=== PATIENT | male | born 1985 | race Caucasian/White ===

== ENCOUNTER 2025-04-06 15:18 | Outpatient (CLI) | payer OTHER, SELFPAY ==
--- NOTE | ~2025-04-06 | XR_ITS ---
EXAMINATION: XR chest 2V 04/06/2025 15:34 INDICATION: Shortness of breath PROCEDURE: 2 view chest COMPARISON: No prior studies for comparison. FINDINGS: The lungs are clear. The cardiomediastinal silhouette is within normal limits. There are no pleural effusions. There is no pneumothorax suspected. IMPRESSION: 1: NO ACUTE CARDIOPULMONARY DISEASE. Reviewed, dictated and finalized at location A.
--- OUTSIDE RECORDS SUMMARY | 2025-04-06 15:24 | XMS_ITS | Referral Summary ---
Author Organization [facility] Address [address] [place] [address] Care Team Providers Care Slag Worker Name Role Phone Mac Chester MD Primary Care Provider [phone] Encounters Date Type Department Care Team Description 02/08/2025 Documentation [facility] [address] [place], [place] [phone] Sharron Ashley 02/07/2025 Documentation [facility] [address] [place], [place] [phone] Yudith Vaaldez 02/07/2025 12:30 PM CDT Lab [address] [address] 02/05/2025 [facility] Initial Eligibility [facility] [address] [place], [place] [phone] Evaristo Paul from Last 3 Months Allergies No known active allergies Medications naloxone (NARCAN) 4 mg/actuation spray,non-aero darci Administer 1 spray into affected nostril(s) as needed for opioid reversal Call 911. Administer a single spray in one nostril. Repeat every 3 minutes as needed if no or minimal response. 2 each 4 Active buprenorphine- naloxone (SUBOXONE) 4-1 mg per filmIndication s:Opioid abuse (HCC) Place 1 Film under the tongue daily Collaborating physician Aaron Manzo MD 2 Film 4 Active Active Problems Problem Noted Date Diagnosed Date Opioid abuse 08/08/2024 Encounter for blood-alcohol test 11/13/2023 Social History Tobacco Use Types Packs/Day Years Used Date Smoking Tobacco: Never Tobacco Cessation:Counseling Given: Not Answered Alcohol Use Standard Drinks/Week Comments Not Currently 0 (1 standard drink = 0.6 oz pur e alcohol) Personal Safety Answer Date Recorded Have you ever been in or are you currently in a harmful physical or emotional relationship or is someone making you feel afraid or unsafe? Denies 08/08/2024 Sex and Gender Information Value Date Recorded Sex Assigned at Not on file Legal Sex Male 7:57 AM DISABILITY ADVOCATE Gender Identity Not on file Sexual Orientation Not on file Last Filed Vital Signs Vital Sign Reading Time Taken Comments Blood Pressure 107/71 08/08/2024 2:04 PM CDT Pulse 47 08/08/2024 2:04 PM CDT Temperature 36.4 C (97.5 F) 08/08/2024 11:42 AM CDT Respiratory Rate 16 08/08/2024 2:04 PM CDT Oxygen Saturation 99% 08/08/2024 2:04 PM CDT Inhaled Oxygen Concentration - - Weight 90.7 kg (200 lb) 08/08/2024 11:42 AM CDT Height 177.8 cm (5' 10 ) 08/08/2024 11:42 AM CDT Body Mass Index 28.7 08/08/2024 11:42 AM CDT Plan of Treatment Not on file Procedures Procedure Name Priority Date/Time Associated Diagnosis Comments EGFR STAT 02/07/2025 11:56 AM CDT DRUGS OF ABUSE SCREEN, URINE WITHOUT CONFIRMATION STAT 02/07/2025 11:56 AM CDT COMPREHENSIVE METABOLIC PANEL STAT 02/07/2025 11:56 AM CDT CBC WITHOUT DIFFERENTIAL STAT 02/07/2025 11:56 AM CDT from Last 3 Months Results * eGFR (02/07/2025 11:56 AM CDT) eGFR >90 >=60 mL/min/1. 73 m2 Comment: Interpretive Data Reference Interval Normal >/= 90 mL/min/1.73m2 Mildly decreased* 60 - 89 mL/min/1.73m2 Mildly to moderately decreased 45 - 59 mL/min/1.73m2 Moderately to severely decreased 30 - 44 mL/min/1.73m2 Severely decreased 15 - 29 mL/min/1.73m2 Kidney Failure < 15 mL/min/1.73m2 *Relative to young adult level Estimated glomerular filtration rate is determined by the 2020 CKD-EPI equation recommended by the National Kidney Foundation (A Unifying Approach to GFR Estimation: Recommendations of the NKF-ASK Task Force on Reassessing the Inclusion of Race in Diagnosing Kidney Disease, JASN 2020). The CKD-EPI equation should not be used for patients with unstable renal function and has not been validated in children and those over 70. Current interpretive data was last reviewed 2021. Blood 02/07/2025 11:5 6 AM CDT 02/07/2025 12:00 PM CDT us Nanda Everett MD LAB BLOOD ORDERABLES Final Re sult [facility] ([facility]) 1 [facility] [place] [address] * (ABNORMAL) Drugs of Abuse Screen, Urine without Confirmation (02/07/2025 11:56 AM CDT) Amphetamine, ur Screen Positive, presumptive (A) CutOff 500ng/mL Comment: Interpretive Data - Amphetamines: Samples containing greater than 500 ng/mL d-methamphetamine or other cross-reacting amphetamine compounds are reported as positive. Amphetamine immunoassays are subject to significant false positive rates due to cross-reactivity of non-amphetamine drugs. Confirmatory testing required for definitive results. Current Interpretive Data was last reviewed 2023. Barbiturates, ur Not Detected CutOff 200ng/mL [facility] ([facility]) Comment: Interpretive Data - Barbiturates: Samples containing greater than 200 ng/mL secobarbital or other cross-reacting barbiturate compounds are reported as positive. False positive and false negative results are possible. Confirmatory testing required for definitive results. Current Interpretive Data was last reviewed 2023. Benzodiazepines, ur Screen Positive, presumptive (A) CutOff 100ng/mL [facility] ([facility]) Comment: Interpretive Data - Benzodiazepines: Samples containing greater than 100 ng/mL nordiazepam or other cross-reacting compounds are reported as positive. False positive and false negative results are possible. Confirmatory testing required for definitive results. Current Interpretive Data was last reviewed 2023. Cannabinoids, ur Not Detected CutOff 50 ng/mL [facility] ([facility]) Comment: Interpretive Data - Cannabinoids: Samples containing greater than 50 ng/mL delta-9 THC -COOH or other cross- reacting compounds are reported as positive. False positive and false negative results are possible. Confirmatory testing required for definitive results. Current Interpretive Data was last reviewed 2023. Cocaine, ur Not Detected CutOff 150ng/mL [facility] ([facility]) Comment: Interpretive Data - Cocaine: Samples containing greater than 150 ng/mL benzoylecgonine or other cross- reacting compounds are reported as positive. False positive and false negative results are possible. Confirmatory testing required for definitive results. Current Interpretive Data was last reviewed 2023. Fentanyl, Ur Screen Positive, presumptive (A) CutOff 5 ng/mL [facility] ([facility]) Comment: Interpretive Data - Fentanyl: Samples containing greater than 5 ng/mL norfentanyl, fentanyl, or other cross-reacting fentanyl compounds are reported as positive. False positive and false negative results are possible. Confirmatory testing required for definitive results. Current Interpretive Data was last reviewed 2023. Methadone, ur Not Detected CutOff 300ng/mL [facility] ([facility]) Comment: Interpretive Data - Methadone: Samples containing greater than 300 ng/mL d,l-methadone or other cross-reacting compounds are reported as positive. False positive and false negative results are possible. Confirmatory testing required for definitive results. Current Interpretive Data was last reviewed 2023. Opiates, ur Not Detected CutOff 300ng/mL [facility] ([facility]) Comment: Interpretive Data - Opiates: Samples containing greater than 300 ng/mL morphine or other cross-reacting compounds are reported as positive. False positive and false negative results are possible. Confirmatory testing required for definitive results. Current Interpretive Data was last reviewed 2023. Oxycodone, ur Not Detected CutOff 100ng/mL [facility] ([facility]) Comment: Interpretive Data - Oxycodone: Samples containing greater than 100 ng/mL oxycodone or other cross-reacting compounds are reported as positive. False positive and false negative results are possible. Confirmatory testing required for definitive results. Current Interpretive Data was last reviewed 2023. Phencyclidine, ur Not Detected CutOff 25 ng/mL [facility] ([facility]) Comment: Interpretive Data - Phencyclidine: Samples containing greater than 25 ng/mL phencyclidine or other cross-reacting compounds are reported as positive. False positive and false negative results are possible. Confirmatory testing required for definitive results. Current Interpretive Data was last reviewed 2023. Urine Creatinine 136 mg/dL [facility] ([facility]) Comment: Interpretive Data Urine Creatinine: < 10 mg/dL is extremely dilute = or > 10 but < 20 mg/dL is dilute = or > 20 mg/dL is normal Current Interpretive Data was last revised on 2018. Urine 02/07/2025 11:5 6 AM CDT 02/07/2025 12:10 PM CDT Narrative [facility]) - 02/07/2025 12:35 PM CDT Drug of Abuse screening is performed by immunoassay for medical purposes only. This is not to be used for Pain Management purposes. us Nanda Everett MD LAB URINE ORDERABLES Final Re sult [facility] 1 [facility] Department [place] [address] * (ABNORMAL) CBC without differential (02/07/2025 11:56 AM CDT) WBC 10.8(H) 3.8 - 9.9 K/cumm Hgb 14.4 13.0 - 17.5 g/dL [facility] ([facility]) Hct 44.3 38.9 - 50.3 % [facility] ([facility]) Plt 406(H) 150 - 400 K/cumm [facility] ([facility]) MPV 9.5 9.1 - 12.3 fL [facility] ([facility]) RBC 4.92 4.30 - 5.80 M/cumm [facility] ([facility]) MCV 90.0 81.3 - 96.4 fL [facility] ([facility]) MCH 29.3 27.1 - 33.3 pg [facility] ([facility]) MCHC 32.5 32.3 - 35.7 g/dL [facility] ([facility]) RDW CV 13.9 11.1 - 14.9 % [facility] RDW SD 45.7 35.7 - 48.1 fL [facility] ([facility]) NRBC abs 0.00 0.00 - 0.01 K/cumm [facility] ([facility]) Blood 02/07/2025 11:5 6 AM CDT 02/07/2025 12:00 PM CDT us Nanda Everett MD LAB BLOOD ORDERABLES Final Re sult [facility] ([facility]) 1 [facility] Department [place] [address] * Comprehensive metabolic panel (02/07/2025 11:56 AM CDT) Sodium 136 135 - 145 mmol/L Potassium, pl 4.4 3.3 - 4.9 mmol/L [facility]) Chloride 101 97 - 110 mmol/L [facility]) CO2 24 22 - 32 mmol/L [facility] ([facility] Anion gap 12 2 - 15 mmol/L [facility] ([facility]) BUN 12 6 - 25 mg/dL [facility] ([facility]) Creatinine 0.82 0.80 - 1.30 mg/dL [facility] ([facility]) Glucose 134 70 - 199 mg/dL [facility] ([facility]) Comment: Interpretive Data Fasting glucose >/= 126 mg/dl is diagnostic for diabetes. Fasting is defined as no caloric intake for at least 8 hours. Fasting glucose between 100 mg/dl to 125 mg/dl is diagnostic of prediabetes. In a patient with classic symptoms of hyperglycemia or hyperglycemic crisis, a random glucose >/= 200 mg/dl is diagnostic for diabetes. In the absence of unequivocal hyperglycemia, results should be confirmed by repeat testing. The classification and Diagnosis of Diabetes Diabetes Care 2021; 46: S19-S40. Current interpretive data was last revised 2022. Calcium 9.3 8.5 - 10.3 mg/dL [facility] ([facility]) Bilirubin, total <0.2 0.1 - 1.2 mg/dL [facility] ([facility]) Protein, pl 6.6 6.5 - 8.5 g/dL [facility] ([facility]) Albumin 4.3 3.5 - 5.0 g/dL [facility] ([facility]) Alk phos 98 40 - 130 Units/L [facility] ([facility]) ALT 20 7 - 55 Units/L [facility] AST 18 10 - 50 Units/L [facility] ([facility]) Blood 02/07/2025 11:5 6 AM CDT 02/07/2025 12:00 PM CDT us Nanda Everett MD LAB BLOOD ORDERABLES Final Re sult [facility] ([facility]) 1 [facility] [place] [address] from Last 3 Months Insurance IDPA Care Teams Slag Worker Relationship Specialty Start Date End Date Mac Chester MD [address] [place] [place] [address] PCP - General Internal Medicine 11/13/23
--- OUTSIDE RECORDS SUMMARY | 2025-04-06 15:24 | XMS_ITS | Clinical Summary ---
Author Organization [facility] Address [address] [place] [address] Care Team Providers Care Motorcycle Fabricator Name Role Phone Mac Chester MD Primary Care Provider Allergies No known active allergies Medications naloxone [...] abuse 08/08/2024 Encounter for blood-alcohol test 11/13/2023 Encounters Date Type Department Care Team Description 02/08/2025 Documentation [facility] [address] [place], [place] [phone] Sharron Ashley 02/07/2025 12:30 PM CDT Lab [address] [address] 02/07/2025 Documentation [facility] [address] [place], [place] [phone] Yudith Valadez 02/05/2025 [facility] Initial Eligibility [facility] [address] [place], [place] [phone] Evaristo Paul from Last 3 Months Medical History Medical History Date Comments Anxiety Social History Tobacco Use Types Packs/Day Years [...] on file 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 Gender Identity Not on file Sexual Orientation Not on file Obstetrics History Last Filed Vital Signs Vital Sign Reading [...] 08/08/2024 11:42 AM CDT Plan of Treatment Health Maintenance Due Date Last Done Comments Depression Screening 1983 Hepatitis C Screening 1983 DTaP/Tdap/Td Vaccine (1 - Tdap) 1994 Varicella Vaccines (1 of 2 - 13+ 2-dose series) 1996 Hepatitis B Screening 2001 Regular Well Visit/Exam 18-64 2001 Influenza Vaccine (#1) 2024 HPV Vaccines Aged Out No longer eligi ble based on patient's age to complete this topic Pneumococcal vaccine <65 Aged Out No longer eligible based on patient's age to complete this topic Procedures Procedure Name Priority Date/Time Associated Diagnosis [...] MD LAB BLOOD ORDERABLES Final Re sult [facility]) 0 [facility] [place] [address] * (ABNORMAL) Drugs of Abuse Screen, Urine [...] 2023. Barbiturates, ur Not Detected CutOff 200ng/mL [facility] ([facility]) Comment: Interpretive Data - Barbiturates: Samples containing greater than 200 ng/mL secobarbital or other cross-reacting barbiturate compounds are reported as positive. False positive and false negative results are possible. Confirmatory testing required for definitive results. Current Interpretive Data was last reviewed 2023. Benzodiazepines, ur Screen Positive, presumptive (A) CutOff 100ng/mL [facility] ([facility]) Comment: Interpretive Data - Benzodiazepines: Samples [...] 2023. Opiates, ur Not Detected CutOff 300ng/mL [facility] ([facility]) Comment: Interpretive Data - Opiates: Samples containing greater than 300 ng/mL morphine or other cross-reacting compounds are reported as positive. False positive and false negative results are possible. Confirmatory testing required for definitive results. Current Interpretive Data was last reviewed 2023. Oxycodone, ur Not Detected CutOff 100ng/mL [facility] ([facility]) Comment: Interpretive Data - Oxycodone: Samples [...] reviewed 2023. Urine Creatinine 136 mg/dL [facility] ([facility]) Comment: Interpretive Data Urine Creatinine: < [...] URINE ORDERABLES Final Re sult [facility] ([facility]) 1 [facility] [place] [address] * (ABNORMAL) CBC without differential (02/07/2025 11:56 AM CDT) WBC 10.8(H) 3.8 - 9.9 K/cumm Hgb 14.4 13.0 - 17.5 g/dL [facility] ([facility]) Hct 44.3 38.9 - 50.3 % [facility] ([facility]) Plt 406(H) 150 - 400 K/cumm [facility] ([facility]) MPV 9.5 9.1 - 12.3 fL [facility] ([facility]) RBC 4.92 4.30 - 5.80 M/cumm [facility] ([facility]) MCV 90.0 81.3 - 96.4 fL [facility] ([facility]) MCH 29.3 27.1 - 33.3 pg [facility] ([facility]) MCHC 32.5 32.3 - 35.7 g/dL [facility] ([facility]) RDW CV 13.9 11.1 - 14.9 % [facility]) RDW SD 45.7 35.7 - 48.1 fL [facility] NRBC abs 0.00 0.00 - 0.01 K/cumm [facility] Blood 02/07/2025 11:5 6 AM CDT 02/07/2025 12:00 PM CDT us Nanda Everett MD LAB BLOOD ORDERABLES Final Re sult [facility] ([facility]) 1 [facility] [place] [address] * Comprehensive metabolic panel (02/07/2025 11:56 AM CDT) Sodium 136 135 - 145 mmol/L Potassium, pl 4.4 3.3 - 4.9 mmol/L [facility] Chloride 101 97 - 110 mmol/L [facility]) CO2 24 22 - 32 mmol/L [facility] Anion gap 12 2 - 15 mmol/L [facility] ([facility] BUN 12 6 - 25 mg/dL [facility] Creatinine 0.82 0.80 - 1.30 mg/dL [facility] Glucose 134 70 - 199 mg/dL [facility] Comment: Interpretive Data Fasting [...] classification and Diagnosis of Diabetes Diabetes Care 202; 46: S19-S40. Current interpretive data was last [...] Final Re sult [facility] ([facility]) 1 [facility] [place] [address] from Last 3 Months Insurance IDPA Care Teams Motorcycle Fabricator Relationship Specialty Start Date End Date Mac Chester MD [address] [facility] [address] [place] [address] PCP - General Internal Medicine 11/13/23
--- OUTSIDE RECORDS SUMMARY | 2025-04-06 15:24 | XMS_ITS | Patient Health Record ---
Author Organization [facility] [employer] [facility] Address [address] [facility] [address] [place] [address] Care Team Providers Care Revenue Cycle Administrator Name Role Phone Nemo HINES, Mac Primary Care Provider Unavailab Jazlyn Ortez Unavailable [phone] MjDionisio tovarjay Unavailable [phone] Migration, Provider Unavailable Unavailable Allergies No Known Allergies Results Component Value Reference Range Notes UDT Reviewed date:05/29/2024 07:55:51 AM Interpretation: Performing Lab: Notes/Report: THC N 0 - 50 ng/ml Cocaine N Amphetamine N Buprenorphine (BUP) P Secobarbital (Bar) N Oxazepam (BZO) P 0-uurhjccxfz-2,0-pvdunesl-1,3-diphenylpyrrolidine (VICENTE P) N Methamphetamine (MET) N Methylenedioxymethamphetamine (MDMA) N Morphine (MOP 300/[id number]) N Methadone (MTD) N Phencyclidine (PCP) N x N UDT Reviewed date:12/06/2024 03:04:14 PM Interpretation: Performing Lab: Notes/Report: THC N 0 - 50 ng/ml Cocaine N 0 - 300 ng/ml Amphetamine N 0 - 1000 ng/ml Buprenorphine (BUP) N 0 - 10 ng/ml Secobarbital (Bar) N 0 - 300 ng/ml Oxazepam (BZO) P 0 - 300 ng/ml 9-yraeqjstue-4,4-zpdeldmf-3,3-diphenylpyrrolidine (VICENTE P) N 0 - 300 ng/ml Methamphetamine (MET) N 0 - 1000 ng/ml Methylenedioxymethamphetamine (MDMA) N 0 - 500 ng/ml Morphine (MOP 300/[id number]) N 0 - 300 ng/ml Methadone (MTD) N 0 - 300 ng/ml Phencyclidine (PCP) N 0 - 25 ng/ml Nortriptyline (TCA) N 0 - 1000 ng/ml Oxycodone N 0 - 300 ng/ml x N 0 - 300 ng/ml UDT Reviewed date:06/06/2024 08:01:41 AM Interpretation: Performing Lab: Notes/Report: THC n 0 - 50 ng/ml Cocaine n 0 - 300 ng/ml Amphetamine n 0 - 1000 ng/ml Buprenorphine (BUP) n 0 - 10 ng/ml Secobarbital (Bar) n 0 - 300 ng/ml Oxazepam (BZO) p 0 - 300 ng/ml 9-bubwrpxiti-0,8-uioeqyql-5,3-diphenylpyrrolidine (VICENTE P) n 0 - 300 ng/ml Methamphetamine (MET) n 0 - 1000 ng/ml Morphine (MOP 300/QKR8571) n 0 - 300 ng/ml Phencyclidine (PCP) n 0 - 25 ng/ml Nortriptyline (TCA) n 0 - 1000 ng/ml x n 0 - 300 ng/ml Reason For Referral No Information Medications Medication SIG (Take, Route, Fr equency, Duration) Notes Start Date End Date Status ALPRAZolam 0.5 MG 1 tablet Orally Thre e times a day as needed for 30 days 11/13/2024 Active Meloxicam 15 MG Oral 01/17/2024 Act azalia ALPRAZolam 0.5 MG 1 tablet Oral three times a day for 30 days As needed Active Vilazodone HCl 40 MG 1 tablet with food Oral Once a day for 90 days Active Social History Tobacco Use: Social History Observation Description Date Details (start date - stop date) Former Smoker NA - NA Sex Assigned At : Social History Observation Description Sex Assigned At Male Tobacco Control (Standard) Question Answer Notes Tobacco use: Former smoker AUDIT-C (Standard) Question Answer Notes Did you have a drink containing alcohol in the p ast year? No Problems Problem Type SNOMED Code ICD Code Onset Dates Problem Status W/U Status Risk Notes Problem Generalized anxiety disorder (78099832) Generalized anxiety disorder (F41.1) Active confirmed Problem Posttraumatic stress disorder (36355595) Post-traumatic stress disorder, chronic (F43.12) Active confirmed Vital Signs Heart Rate 128 /min 12/06/2024 Height-cm 177.80 cm 12/06/2024 Blood pressure diastolic 74 mm Hg 12/06/2024 Weight-kg 95.25 kg 12/06/2024 Height 70.00 in 12/06/2024 Blood pressure systolic 112 mm Hg 12/06/2024 Weight 210 lbs 12/06/2024 BMI 30.13 kg/m2 12/06/2024 Encounters Encounter Location Date Provider Diagnosis [place] [address] [facility] [address] [place] [address] 05/26/2024 Jazlyn Kurilla Generalized anxiety disorder F41.1 and Post-traumatic stress disorder, chronic F43.12 [place] [address] [address] 06/02/2024 Jensen Barker [place] [address] [address] 12/06/2024 Jazlyn Kurilla Generalized anxiety disorder F41.1 and Post-traumatic stress disorder, chronic F43.12 [place] [address] [address] 04/08/2024 Provider Migration [place] [address] [facility] [address] [place] [address] 04/09/2024 Provider Migration [place] [address] [address] 06/06/2024 Jazlyn Kurilla Generalized anxiety disorder F41.1 [place] [address] [address] 11/13/2024 Jazlyn Kurilla Generalized anxiety disorder F41.1 [place] [address] [address] 05/29/2024 Jazlyn Kurilla [place] [address] [facility] [address] [place] [address] 12/06/2024 Jazlyn Kurilla Generalized anxiety disorder F41.1 Assessments Encounter Date Diagnosis (ICD Code) Assessment Notes Treatment Notes Treatment Clinical Notes Section Notes 11/13/2024 Generalized anxiety disorder (ICD-10 - F41.1) 05/26/2024 Generalized anxiety disorder (ICD-10 - F41.1) 05/26/2024 Post-traumatic stress disorder, chronic (ICD-10 - F43.12) 06/06/2024 Generalized anxiety disorder (ICD-10 - F41.1) 12/06/2024 Generalized anxiety disorder (ICD-10 - F41.1) 12/06/2024 Generalized anxiety disorder (ICD-10 - F41.1) 12/06/2024 Post-traumatic stress disorder, chronic (ICD-10 - F43.12) 05/26/2024 Other Stable, continue current medications. Patient educated on all medications including potential benefits, side effects, risks. Educated on proper dosing schedule and importance of compliance. [place] checked and consistent with prescription history, no controlled substance prescriptions from other providers. 12/06/2024 Other Continue current medications. Refills sent in. Patient educated on all medications including potential benefits, side effects, risks. Educated on proper dosing schedule and importance of compliance. [place] report checked and consistent with prescription history, no controlled substance prescriptions from other providers. -Assessment and treatment plan reviewed with patient. -Compliance with treatment plan importance discussed. -Discussed the risks/benefits of this medication -Discussed medication side effects. -Contact office if symptoms worsen. -Discussed that it can take up to 6-8 weeks to see full therapeutic effects of psychotropic medications. -Crisis prevention hotline 988. Plan Of Treatment No Information Insurance Providers Payer Name Payer Address Payer Phone Subscriber Number Group Number Insured Name Patient Relationship to Insured Coverage Start Date Coverage End Date [facility] [address] [place] [phone] [id number] EMIR BYERS Self - patient is the insured Medical (General) History Medical History History ICD Code Problems: Chronic post-traumatic stress disorder Generalized anxiety disorder Long-term current use of drug therapy , Surgical History Surgery Date(Month/Year) Other 05/31/2015
--- OUTSIDE RECORDS SUMMARY | 2025-04-06 15:24 | XMS_ITS | Patient Health Record ---
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 Therapist - Dr. Jazlyn Lockett in [place], [place] Psychiatric Diagnosis(es) - Anxiety, panic disorder Past Psychiatric Medications - Wellbutrin, Celexa Inpt Psych Hospitalizations - X1 for opiate detox in 2023 Suicidal Ideation Hx - None Suicide Attempt(s) - None Homicidal Ideation - None Self-Injury/High Risk Bx - None - - - - - - - - - - - FAMILY PSYCHIATRIC HISTORY Suicides or Attempts - Maternal grandfather completed suicide Alcohol/Drug Use - On both sides of family - alcohol abuse Disorders - None - - - - - - - - - - - Problems Problem Type SNOMED Code ICD Code Onset Dates Problem Status W/U Status Risk Notes Problem Generalized anxiety disorder (48640267) ERIC (generalized anxiety disorder) (F41.1) 5 Active confirmed Problem Panic disorder (650777374) Panic disorder (F41.0) 5 Active confirmed Problem Sleep disturbance (59189202) Sleep disturbance (G47.9) Active confirmed Problem Alcohol use disorder (7954957061) Alcohol use disorder (F10.99) 5 Active confirmed Problem Obesity (245278871) Obesity (BMI 30-39.9) (E66.9) Active confirmed Problem Opioid abuse (5546955) Opioid use disorder, mild (F11.10) Active confirmed Problem Opioid use disorder (4610190436) Opioid use disorder (F11.99) Active confirmed Vital Signs Heart Rate 98 /min 03/21/2025 Temperature 98.0 degrees Fahrenheit 03/09/2025 Respiratory Rate 18 /min 03/21/2025 Blood pressure diastolic 78 mm Hg 03/21/2025 Oximetry 98 % 03/21/2025 Height 70 in 03/21/2025 Blood pressure systolic 120 mm Hg 03/21/2025 Weight 225.6 lbs 03/09/2025 BMI 32.37 kg/m2 03/09/2025 Encounters Encounter Location Date Provider Diagnosis Formerly [facility] [address] [place] [address] 02/15/2025 Patricio Whittaker [address] [place] [address] 01/15/2025 Geovanna Knapp ERIC (generalized anxiety disorder) F41.1 ; Panic disorder F41.0 ; Alcohol use disorder F10.99 ; Opioid use disorder, mild F11.10 and Medication management Z79.899 Formerly [facility] [address] [place] [address] 02/14/2025 Jose Rowley Nutritional counseling Z71.3 ; Routine general medical examination at a health care facility Z00.00 ; Opioid use disorder, mild F11.10 ; Obesity (BMI 30-39.9) E66.9 and Tuberculosis screening Z11.[address] [address] 02/14/2025 Manda Lock Alcohol use disorder F10.99 and Opioid use disorder F11.[address] [place] [address] 02/19/2025 Geovanna Knapp ERIC (generalized anxiety disorder) F41.1 ; Panic disorder F41.0 ; Alcohol use disorder F10.99 ; Opioid use disorder, mild F11.10 and Medication management Z79.[address] [place] [address] 02/20/2025 Radha Lawrence Opioid use disorder F11.99 and Over weight E66.[address] [address] 03/02/2025 Estuardo Joaquimt Dietary counseling Z71.3 ; Obesity (BMI 30-39.9) E66.9 ; Opioid use disorder F11.99 and Anxiety F41.[address] [address] 03/02/[address] [address] 03/07/2025 [facility] Opioid use disorder F11.90 ; Dietary counseling Z71.3 and Obesity (BMI 30-39.9) E66.[address] [address] 03/07/[address] [address] 03/09/2025 Estuardo Marcht Finger infection L08.[address] [address] 03/09/2025 Estuardo Blas [address] [place] [address] 03/14/2025 Geovanna Knapp ERIC (generalized anxiety disorder) F41.1 ; Panic disorder F41.0 ; Sleep disturbance G47.9 ; Alcohol use disorder F10.99 ; Opioid use disorder, mild F11.10 and Medication management Z79.[address] [address] 03/21/2025 Estuardo Marcht Dietary counseling Z71.3 ; Obesity (BMI 30-39.9) E66.9 and Pedal edema R60.0 Formerly [facility] [address] [place] [address] 02/15/2025 Geovanna Knapp [address] [place] [address] 02/16/2025 Geovanna Knapp [address] [place] [address] 02/20/2025 Patricio Whittaker [address] [address] 03/09/2025 Estuardo Roopa [address] [facility] [place] [address] 03/12/2025 Geovanna Knapp [address] [address] 03/13/2025 Geovanna Knapp Panic disorder F41.0 Formerly [facility] [address] [place] [address] 03/16/2025 Geovanna Knapp Assessments Encounter Date Diagnosis (ICD Code) Assessment Notes Treatment Notes Treatment Clinical Notes Section Notes 01/15/2025 ERIC (generalized anxiety disorder) (ICD-10 - F41.1) Client reports he does not need a refill at this time. Psychotherapy recommended. Referral sent. 01/15/2025 Panic disorder (ICD-10 - F41.0) Psychotherapy recommended. Referral sent. Risks and benefits of benzodiazepine use reviewed with client. Client advised that this medication is for short-term use only while maintenance medications are being adjusted for mood stabilization. [place] of [place] - [place] concerns. 02/14/2025 Alcohol use disorder (ICD-10 - F10.99) 02/14/2025 Routine general medical examination at a health care facility (ICD-10 - Z00.00) Stable for admission. Continue MRU protocol. Encouraged regular f/u with PCP for recommended screenings and physicals. 02/14/2025 Nutritional counseling (ICD-10 - Z71.3) 02/19/2025 ERIC (generalized anxiety disorder) (ICD-10 - F41.1) 02/19/2025 Panic disorder (ICD-10 - F41.0) [place]19[place]25 - no concerns. CLIENT IS WEANING OFF BENZODIAZEPINES - DIAZEPAM Client is to be weaned off alprazolam 0.5 mg TID starting today, 02/19/2025, by switching today to diazepam 5 mg TID. Every 2-4 weeks, a new prescription will be sent reducing prescription by 5-10%. If client used significantly less than prescribed amount in the previous month, the amount prescribed for the next month needs to be reduced by amount used in the previous month, not by amount prescribed. Client is aware of benzodiazepine taper schedule, and is agreeable to plan. UDS and controlled substance agreement obtained today. 02/20/2025 Over weight (ICD-10 - E66.3) 02/20/2025 Opioid use disorder (ICD-10 - F11.99) 03/02/2025 Dietary counseling (ICD-10 - Z71.3) 03/07/2025 Opioid use disorder (ICD-10 - F11.90) Andrew given first loading dose of Sublocade. This will be repeated in one month. 03/14/2025 ERIC (generalized anxiety disorder) (ICD-10 - F41.1) 03/14/2025 Panic disorder (ICD-10 - F41.0) 03/09/2025 Finger infection (ICD-10 - L08.9) Discussed with patient that wound does appear moderately reddened and may be in early stage of infection. No purulence noted and no purulence expressed from wound. Will cover with antibiiotic (Augmentin) and have RNs check wound daily. Should also use triple antibiotic ointment to wound topically. Sutures to be removed on 03/14. 03/13/2025 Panic disorder (ICD-10 - F41.0) 03/21/2025 Dietary counseling (ICD-10 - Z71.3) 03/21/2025 Obesity (BMI 30-39.9) (ICD-10 - E66.9) 03/14/2025 Sleep disturbance (ICD-10 - G47.9) 03/07/2025 Dietary counseling (ICD-10 - Z71.3) 03/02/2025 Obesity (BMI 30-39.9) (ICD-10 - E66.9) 02/19/2025 Alcohol use disorder (ICD-10 - F10.99) Recommend a combination of 12-step programs, outpatient programs, and psychotherapy to maintain recovery in the outpatient setting. Continue all requirements of drug court program as ordered. 02/14/2025 Opioid use disorder, mild (ICD-10 - F11.10) 02/14/2025 Opioid use disorder (ICD-10 - F11.99) 01/15/2025 Alcohol use disorder (ICD-10 - F10.99) Recommend a combination of 12-step programs, outpatient programs, and psychotherapy to maintain recovery in the outpatient setting. 01/15/2025 Opioid use disorder, mild (ICD-10 - F11.10) Recommend a combination of 12-step programs, outpatient programs, and psychotherapy to maintain recovery in the outpatient setting. 02/14/2025 Obesity (BMI 30-39.9) (ICD-10 - E66.9) 02/19/2025 Opioid use disorder, mild (ICD-10 - F11.10) Recommend a combination of 12-step programs, outpatient programs, and psychotherapy to maintain recovery in the outpatient setting. Continue all requirements of drug court program as ordered. 03/02/2025 Opioid use disorder (ICD-10 - F11.99) Residential treatment Patient is competent to self-administer medications Patient plans to start extended release buprenorphine injections next week (Wednesday) - will continue suboxone until then 03/07/2025 Obesity (BMI 30-39.9) (ICD-10 - E66.9) 03/14/2025 Alcohol use disorder (ICD-10 - F10.99) Recommend a combination of 12-step programs, outpatient programs, and psychotherapy to maintain recovery in the outpatient setting. Continue all requirements of drug court program as ordered. 03/21/2025 Pedal edema (ICD-10 - R60.0) Suspect bilateral pedal edema as side effect of suboxone treatment Discussed reducing salt intake and elevating feet whenever possible with patient. Will also check bilateral Venous Doppler of lower extremities due to mild calf tenderness. 03/14/2025 Opioid use disorder, mild (ICD-10 - F11.10) Recommend a combination of 12-step programs, outpatient programs, and psychotherapy to maintain recovery in the outpatient setting. Continue all requirements of drug court program as ordered. 03/02/2025 Anxiety (ICD-10 - F41.9) MH to see 01/15/2025 Medication management (ICD-10 - Z79.899) May self-administer medications or be administered own oral medications per [facility] protocols. Provided informed consent with understanding of side effects, adverse effects, risks and benefits as well as alternative treatments as previously discussed and with the above recommended medications & other aspects of the treatment program. Agrees to return sooner if symptoms worsen or suicidal or homicidal ideations occur. 02/14/2025 Tuberculosis screening (ICD-10 - Z11.1) 02/19/2025 Medication management (ICD-10 - Z79.899) May self-administer medications or be administered own oral medications per [facility] protocols. Provided informed consent with understanding of side effects, adverse effects, risks and benefits as well as alternative treatments as previously discussed and with the above recommended medications & other aspects of the treatment program. Agrees to return sooner if symptoms worsen or suicidal or homicidal ideations occur. 03/14/2025 Medication management (ICD-10 - Z79.899) May self-administer medications or be administered own oral medications per [facility] protocols. Provided informed consent with understanding of side effects, adverse effects, risks and benefits as well as alternative treatments as previously discussed and with the above recommended medications & other aspects of the treatment program. Agrees to return sooner if symptoms worsen or suicidal or homicidal ideations occur. 02/14/2025 Other Discussed medication side effects, adverse effects, risks, benefits, as well as interactions. Encouraged non-use of opioids. Has naloxone. Recommended participation in recovery groups and/or counseling services. May contact office with questions or concerns. 02/14/2025 Other Clinician met w ith client to assess needs for residential services. Clinician gathered information regarding historical presentation of mental health and substance use symptoms including withdrawal, HIV Risk assessment, psychiatric hospitalization history and presenting concern. Clinician conducted PHQ9 and CSSRS assessments as well as social drivers of health screening for the purposes of identifying additional service needs. 02/20/[address] client. Will plan to transitition to buprenorphine injection per drug court guidelines. Provided information on Sublocade and Brixadi. Patient would like to return to clinic to initiate injection. Patient agrees to take medication as prescribed. Discussed medication side effects, adverse effects, risks, benefits, as well as interactions. Encouraged non-use of opioids and other illicit substances. Has naloxone. Discontinuing buprenorphine increases the risk of overdose upon return to illicit opioid use. Use of alcohol or benzodiazepines with buprenorphine increases the risk of overdose and . Education provided about safe storage of medications. Encouraged participation in recovery groups/counseling services. Contact office with questions or concerns. Patient may self-administe r their own medications or may self-administe r their own oral medications per [facility] Protocol. 03/02/2025 Other Plan for patient: cont RES tx; switch from Suboxone to Sublocade with appt 03/07/2025 Other Discussed the risks, benefits, and possible side effects of Sublocade. Discussed the actual injection and after care. No rubbing or scratching the [id number]|2025-04-06 15:24:00|2025-04-06 15:24:00|XMS_ITS|BKG DAEMON|External Medical Summaries|[id number]|" Clinical Summary Created on: April 06, 2025 Andrew Hammond : 1985 Sex: Male Author Organization [facility] Address [address] [place] [id number] Care Team Providers Care Public Works Inspector Name Role Phone Unavailable Primary Care Provider Unavailabl e Social History Tobacco Use Types Packs/Day Years Used Date Smoking Tobacco: Never Assessed Sex and Gender Information Value Date Recorded Sex Assigned at Not on file Legal Sex Male 7:30 PM CDT Gender Identity Not on file Sexual Orientation Not on file Last Filed Vital Signs Vital Sign Reading Time Taken Comments Blood Pressure 94/62 04/06/2018 2:25 PM CDT Pulse 76 04/06/2018 2:25 PM CDT Temperature - - Respiratory Rate - - Oxygen Saturation - - Inhaled Oxygen Concentration - - Weight 98 kg (216 lb) 04/06/2018 2:25 PM CDT Height 174 cm (5' 8.5 ) 04/06/2018 2:25 PM CDT Body Mass Index 32.36 04/06/2018 2:25 PM CDT Plan of Treatment Health Maintenance Due Date Last Done Comments Annual Physical 1986 Hepatitis C 2001 DTaP, Tdap and Td Vaccines ( 1 - Tdap) 2002 Hepatitis B Vaccines (1 of 3 - 19+ 3-dose series) 2002 COVID-19 Vaccine (2023-2 5 season) 2024 HPV Vaccines Aged Out No longer eligi ble based on patient's age to complete this topic Meningococcal B Vaccine Aged Out No l onger eligible based on patient's age to complete this topic Meningococcal Vaccine Aged Out No alessandra graham eligible based on patient's age to complete this topic Pneumococcal Vaccine: Pediat rics (0 to 5 Years) and At-Risk Patients (6 to 49 Years) Aged Out No longer eligible b ased on patient's age to complete this topic RSV Immunizations Under 20 Months Aged Out No longer eligible based on patient's age to complete this topic "
--- OUTSIDE RECORDS SUMMARY | 2025-04-06 15:24 | XMS_ITS | Clinical Summary ---
Author Organization [facility] Address [address] [place] [address] Phone Care Team Providers Care Gas Adjuster Name Role Phone Real Garza MD Primary Care Provider [phone] Allergies No known active allergies Medications * This document contains information received from the source organization and may not represent a complete record from that organization. ALPRAZolam (Xanax) 0.5 MG Tablet Take 0.5 mg by mouth 3 times daily as needed for Anxiety. Active buprenorphine-n aloxone (Suboxone) 2-0.5 MG FILMIndications :Opioid withdrawal (HCC) 1 Film by Sublingual route every 12 hours as needed (withdrawal). 10 Film Active acetaminophen (TYLENOL) 500 MG Tablet Take 500 mg by mouth every 6 hours as needed. Active Ibuprofen 200 MG Capsule Take 2-4 Capsules by mouth every 6 hours as needed. Active hydrOXYzine (ATARAX) 25 MG Tablet Take 1-2 Tablets by mouth every 6 hours as needed. Active chlordiazePOXID E (LIBRIUM) 25 MG Capsule Take 25 mg by mouth every morning. Active Active Problems Problem Noted Date Diagnosed Date Chronic midline low back pain 06/20/2024 Anxiety 06/20/2024 Obesity (BMI 30-39.9) 06/20/2024 Hyperglycemia 06/20/2024 Resolved Problems Problem Noted Date Diagnosed Date Resolved Date Opioid withdrawal 06/20/2024 11/17/2024 Encounters Date Type Department Care Team Description 03/04/2025 9:25 AM CDT Urgent Care Visit [facility] [address] [place] [address] Brooke Lyle, MANAGER SHIP, PRODUCTION WELDER Laceration of right little finger without foreign body without damage to nail, initial encounter (Primary Dx); Need for Tdap vaccination Discharge Disposition: Discharged to home or Selfcare 03/04/2025 Travel from Last 3 Months Immunizations Immunization Administration Dates Next Due TDAP Vaccine 03/04/2025 Social History Tobacco Use Types Packs/Day Years Used Date Smoking Tobacco: Former Cigarettes Tobacco Cessation:Counseling Given: Not Answered Comments:Chews nicotine tabs Alcohol Use Standard Drinks/Week Comments Not Currently 0 (1 standard drink = 0.6 oz pur e alcohol) [facility] Utilities Answer Date Recorded In the past 12 months has e electric, gas, oil, or water company threatened to shut off services in your home? Patient declined 11/14/2024 Social Connection and Isolation Panel [NHANES] A nswer Date Recorded In a typical week, how many times do you talk on the phone with family, friends, or neighbors? Patient declined 11/14/2024 How often do you get togethe r with friends or relatives? Patient declined 11/14/2024 How often do you attend jew or roman catholic serv ices? Patient declined 11/14/2024 Do you belong to any clubs o r organizations such as jew groups, unions, fraternal or athletic groups, or school groups? Patient declined 11/14/2024 How often do you attend meet ings of the clubs or organizations you belong to? Patient declined 11/14/2024 Are you , , di vorced, , never , or living with a partner? Patient declined 11/14/2024 AUDIT-C Answer Date Recorded Q1: How often do you have a drink containing alc ohol? Patient declined 11/14/2024 Q2: How many drinks containi ng alcohol do you have on a typical day when you are drinking? Patient declined 11/14/2024 Q3: How often do you have si x or more drinks on one occasion? Patient declined 11/14/2024 Overall Financial Resource Strain (CARDIA) Answe r Date Recorded How hard is it for you to pa y for the very basics like food, housing, medical care, and heating? Patient declined 11/14/2024 [employer] [place] [facility] - Occupational Stress Questionnaire Answer Date Recorded Do you feel stress - tense, restless, nervous, or anxious, or unable to sleep at night because your mind is troubled all the time - these days? Patient declined 11/14/2024 Exercise Vital Sign Answer Date Recorde d On average, how many days pe r week do you engage in moderate to strenuous exercise (like a brisk walk)? Patient declined On average, how many minutes do you engage in exercise at this level? Patient declined 11/14/2024 Hunger Vital Sign Answer Date Recorded Within the past 12 months, y ou worried that your food would run out before you got the money to buy more. Patient declined Within the past 12 months, t he food you bought just didn't last and you didn't have money to get more. Patient declined PRAPARE - Transportation Answer Date Re corded In the past 12 months, has l ack of transportation kept you from medical appointments or from getting medications? Patient declined 11/14/2024 In the past 12 months, has l ack of transportation kept you from meetings, work, or from getting things needed for daily living? Patient declined 11/14/2024 Housing Stability Vital Sign Answer Wes e Recorded In the last 12 months, was t here a time when you were not able to pay the mortgage or rent on time? Patient declined 11/14/20 24 In the past 12 months, how m any times have you moved where you were living? 1 11/14/2024 At any time in the past 12 m [facility], were you homeless or living in a fpc (including now)? Patient declined 11/14/2024 Sexually Active Control Partners Comments Not Currently Sex and Gender Information Value Date Recorded Sex Assigned at Not on file Legal Sex Male 10:01 AM CDT Gender Identity Not on file Sexual Orientation Not on file Last Filed Vital Signs Vital Sign Reading Time Taken Comments Blood Pressure 104/73 03/04/2025 9:28 AM CDT Pulse 102 03/04/2025 9:28 AM CDT Temperature 36.4 C (97.6 F) 03/04/2025 9:28 AM CDT Respiratory Rate 16 03/04/2025 9:28 AM CDT Oxygen Saturation 96% 03/04/2025 9:28 AM CDT Inhaled Oxygen Concentration - - Weight 99.8 kg (220 lb) 03/04/2025 9:28 AM CDT Height 177.8 cm (5' 10 ) 03/04/2025 9:28 AM CDT Body Mass Index 31.57 03/04/2025 9:28 AM CDT Plan of Treatment Health Maintenance Due Date Last Done Comments Hepatitis C Virus (HCV) Screening 1985 Hepatitis B Immunization (1 of 3 - 19+ 3-dose series) 2002 SARS-COV-2 Immunization (2023- season) 2024 Influenza Immunization (Seas on Ended) 2025 Td Immunization Every 10 Yea rs (Adults With 1 Tdap) 03/04/2035 03/04/2025 Respiratory Syncytial Virus (RSV) Immunization (Adult) (1 - 1-dose 75+ series) 2058 TdaP Immunization Discontinued 03/04/2025 Meningococcal Immunization (ACWY) Aged Out No longer eligible based on patient's age to complete this topic Pneumococcal Immunization Combined Aged Out No longer eligible b ased on patient's age to complete this topic Rotavirus Immunization Aged Out No lo nger eligible based on patient's age to complete this topic Procedures Procedure Name Priority Date/Time Associated Diagnosis Comments SUPERF WND BODY <2.5CM Routine 03/04/2025 10:20 AM CDT Laceration of right little finger without foreign body without damage to nail, initial encounter from Last 3 Months Results * Laceration Repair (03/04/2025 10:20 AM CDT) Narrative Brooke Lyle APRN, CNP - 03/04/2025 10:20 AM CDT Brooke Lyle APRN, CNP 03/04/2025 10:53 AM Laceration Repair Date/Time: 03/04/2025 10:20 AM Performed by: Brooke Lyle APRN, CNP Authorized by: Brooke Lyle APRN, CNP Consent: Consent obtained: Verbal Consent given by: Patient Risks, benefits, and alternatives were discussed: yes Risks discussed: Infection, pain, poor cosmetic result and poor wound healing Naylor protocol: Patient identity confirmed: Verbally with patient Anesthesia: Anesthesia method: Nerve block Block location: Dorsal base of finger Block needle gauge: 25 G Block injection procedure: Anatomic landmarks identified, introduced needle, negative aspiration for blood and anatomic landmarks palpated Block outcome: Anesthesia achieved Laceration details: Length (cm): 3 Depth (mm): 4 Exploration: Contaminated: no Treatment: Area cleansed with: Justine-Azalea Amount of cleaning: Standard Skin repair: Repair method: Sutures and tissue adhesive Suture size: 5-0 Suture material: Prolene Suture technique: Simple interrupted Number of sutures: 4 Approximation: Approximation: Close Repair type: Repair type: Simple Post-procedure details: Dressing: Antibiotic ointment and non-adherent dressing Procedure completion: Tolerated well, no immediate complications us Brooke Lyle APRN, SHAINA PROCEDURE/MINOR SURG ICAL ORDERABLES Final Result from Last 3 Months Insurance MEDICAID [place] Advance Directives * Full Code (Latest Code Status on File) Date Activated Date Inactivated Comments 11/17/2024 10:35 AM CPR-Full Britton atment: FULL ARREST: Attempt Resuscitation/CPR wit intubation and mechanical ventilation. PRE-ARREST: Use entire range of life support measures to stabilize the patient. Care Teams Gas Adjuster Relationship Specialty Start Date End Date Real Garza MD [address] [place] [address] PCP - General Internal Medicine 06/20/24
== END 2025-04-06 15:19 | disposition home or self-care (01) ==
LOC: ANHIMG 15:21
PROVIDERS: PCP Nurse Practitioner Family; Visit Provider Nurse Practitioner Family
DX: R06.02 Shortness of breath (principal); R60.0 Localized edema
CPT/HCPCS: 71046

== ENCOUNTER 2025-07-13 00:34 | Day surgery (SDC) | payer MEDICAID, SELFPAY ==
[2025-07-02 14:08] VITALS: BMI 31.8
--- OUTSIDE RECORDS SUMMARY | 2025-07-13 00:37 | XMS_ITS | Patient Health Record ---
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 Patient agrees to take medication as prescribed. [...] self-administe r their own oral medications per [facility]. 05/29/2025 Other Patient agrees to take medication as prescribed. [...] services. Contact office with questions or concerns. 06/26/2025 Other Patient agrees to take medication as prescribed. [...] self-administe r their own oral medications per [facility]. 07/02/2025 Other Patient agrees to take medication as prescribed. Discussed medication side effects, adverse effects, risks, benefits, as well as interactions. Encouraged non-use of opioids. Encouraged participation in recovery groups. Patient may contact office with questions or concerns. Plan Of Treatment Pending Test Test Name Order Date Venous Doppler 03/21/2025 Insurance Providers Payer Name Payer Address Payer Phone Subscriber Number Group Number Insured Name Patient Relationship to Insured Coverage Start Date Coverage End Date [facility] [address] [address] [place] [address] [id number] Andrew Hammond Self - patient is the insured 4 4 [employer] [address] [place] [address] [id number] Andrew Hammond Self - patient is the insured 5 5 MEDICAID [address] [place] [address] [id number] Andrew Hammond Self - patient is the insured 5 [email or web address] [address] [place] [address] [id number] Andrew Hammond Self - patient is the insured 5 5 Medications Administered Medication Instructions Date of Administration Dosage Notes Brixadi (Weekly) 04/24/2025 96 mg Rey Johnson L 04/24/2025 11:29:52 AM CDT >Pt tolerated well. No s&s of adverse reaction. Brixadi (Weekly) 05/29/2025 96 mg Rey Johnsonstu L 05/29/2025 11:32:42 AM CDT >Pt tolerated well. No s&s of adverse reaction. Brixadi (Weekly) 07/02/2025 96 mg Rey Johnsonstu L 07/02/2025 01:58:27 PM CDT >Pt tolerated well. No s&s of adverse reaction. Sublocade 03/07/2025 300 mg Medical (General) History Medical History History ICD Code DOC: heroin, opioids Surgical History Surgery Date(Month/Year) hernia repair Hospitalization History Reason Date(Month/Year)
--- OUTSIDE RECORDS SUMMARY | 2025-07-13 00:37 | XMS_ITS | Clinical Summary ---
Author Organization [facility] Address [address] [place] [address] Phone Care Team Providers Care Timber Framer Name Role Phone Real Garza MD Primary Care Provider [phone] Allergies No known active allergies Medications * [...] Date Resolved Date Opioid withdrawal 06/20/2024 11/17/2024 Immunizations Immunization Administration Dates Next Due TDAP Vaccine 03/04/2025 Social History Tobacco Use Types Packs/Day Years Used Date Smoking Tobacco: Former Cigarettes Tobacco Cessation:Counseling Given: Not Answered Comments:Chews nicotine tabs Alcohol Use Standard Drinks/Week Comments Not Currently 0 (1 standard drink = 0.6 oz pur e alcohol) [facility] Utilities Answer Date Recorded In the past 12 months has e electric, gas, oil, or water company threatened to shut off services in your home? Patient declined 11/14/2024 Social Connection and Isolation Panel Answer Date Recorded In a typical week, how many times do you talk on the phone with family, friends, or neighbors? Patient declined 11/14/2024 How often do you get togethe r with friends or relatives? Patient declined 11/14/2024 How often do you attend jewish or yazidism serv ices? Patient declined 11/14/2024 Do you belong to any clubs o r organizations such as jewish groups, unions, fraternal or athletic groups, or [...] medical care, and heating? Patient declined 11/14/2024 [facility] - Occup[facility] Stress [...] or rent on time? Patient declined 11/14/20 In the past 12 months, how m any times have you moved where you were living? 1 11/14/2024 At any time in the past 12 m [facility], were you homeless or living in a [...] 9:28 AM CDT Height 177.8 cm (5' 10) 03/04/2025 9:28 AM CDT Body Mass Index 31.57 03/04/2025 9:28 AM CDT Plan of Treatment Health Maintenance Due Date Last Done Comments Hepatitis C Virus (HCV) Screening 1983 Hepatitis B Immunization (1 of 3 - 19+ 3-dose series) 2002 Human Papillomavirus (HPV) Immunization (1 - 3-dose SCDM series) 2010 SARS-COV-2 Immunization ( season) 2024 Influenza Immunization (#1) 2025 Td Immunization Every 10 Yea rs (Adults With 1 Tdap) 03/04/2035 03/04/2025 Respiratory Syncytial Virus (RSV) Immunization (Adult) (1 - 1-dose 75+ series) 2058 TdaP Immunization Discontinued 03/04/2025 Meningococcal Immunization (ACWY) Aged Out No longer eligible based on patient's age to complete this topic Pneumococcal Immunization Combined Aged Out No longer eligible based on patient's age to complete this topic Rotavirus Immunization Aged Out No lo nger eligible based on patient's age to complete this topic Insurance MEDICAID [place] Advance Directives * Full Code (Latest Code Status on File) Date Activated Date Inactivated Comments 11/17/2024 10:35 AM CPR-Full Britton atment: FULL ARREST: Attempt Resuscitation/CPR wit intubation and mechanical ventilation. PRE-ARREST: Use entire range of life support measures to stabilize the patient. Care Teams Timber Framer Relationship Specialty Start Date End Date Real Garza MD [address] [place] [address] PCP - General Internal Medicine 06/20/24
--- OUTSIDE RECORDS SUMMARY | 2025-07-13 00:37 | XMS_ITS | Clinical Summary ---
Author Organization [facility] Address [address] [place] [id number] Care Team Providers Care Assurance Senior Manager Name Role Phone Unavailable Primary Care Provider [...] 2:25 PM CDT Height 174 cm (5' 8.5) 04/06/2018 2:25 PM CDT Body Mass Index 32.36 04/06/2018 2:25 PM CDT Plan of Treatment Health Maintenance Due Date Last Done Comments Annual Physical 1986 Hepatitis C 2001 DTaP, Tdap and Td Vaccines ( 1 - Tdap) 2002 Hepatitis B Vaccines (1 of 3 - 19+ 3-dose series) 2002 HPV Vaccines (1 - 3-dose SCD M series) 2010 COVID-19 Vaccine (2023-2 5 season) 2024 Meningococcal B Vaccine Aged Out No l [...]
--- OUTSIDE RECORDS SUMMARY | 2025-07-13 00:37 | XMS_ITS | Patient Health Record ---
Author Organization [facility] Address [address] [place] [address] Care Team Providers Care Operations Supervisor Chemical Cleaning Name Role Phone Nemo HINES, Mac Primary Care Provider Unavailab Jazlyn Ortez Unavailable [phone] Allergies No Known Allergies Results Component Value Reference Range Notes UDT Reviewed date:12/06/2024 03:04:14 PM Interpretation: Performing Lab: Notes/Report: THC N 0 - 50 ng/ml Cocaine N 0 - 300 ng/ml Amphetamine N 0 - 1000 ng/ml Buprenorphine (BUP) N 0 - 10 ng/ml Secobarbital (Bar) N 0 - 300 ng/ml Oxazepam (BZO) P 0 - 300 ng/ml 1-indkxkesow-8,6-tefqivzz-8,3-diphenylpyrrolidine (VICENTE P) N 0 - 300 ng/ml Methamphetamine (MET) N 0 - 1000 ng/ml Methylenedioxymethamphetamine (MDMA) N 0 - 500 ng/ml Morphine (MOP 300/IEB1519) N 0 - 300 ng/ml Methadone (MTD) N 0 - 300 ng/ml Phencyclidine (PCP) N 0 - 25 ng/ml Nortriptyline (TCA) N 0 - 1000 ng/ml Oxycodone N 0 - 300 ng/ml x N 0 - 300 ng/ml Reason For Referral No Information Medications Medication SIG (Take, Route, Frequency, Duration) Notes Start Date End Date Status ALPRAZolam 0.5 MG Tablet 1 tablet Orally Three times a day as needed; Duration: 30 days 11/13/2024 Active Meloxicam 15 MG Tablet Oral 01/17/2024 Active ALPRAZolam 0.5 MG Tablet 1 tablet Oral three times a day; Duration: 30 days As needed Active Vilazodone HCl 40 MG Tablet 1 tablet with food Oral Once a day; Duration: 90 days Active Social History Tobacco Use: Social History Observation Description Date Details (start date - stop date) Former Smoker NA - NA Sex Assigned At : Social History Observation Description Sex Assigned At Male Social History Drug/Alcohol: Social Info Question Answer Notes AUDIT-C (Standard) Did you have a drink containing alcohol in the past year? No Tobacco Use: Social Info Question Answer Notes Tobacco Control (Standard) Tobacco use: Former smoker Additional Details Category Social Info Options Details Migrated Social History Migrated Social History Alcohol Intake: None 09/24/2020,Tobacco Years: Former smoker 09/24/2020,Smoking Status: 10 07/19/2023 Problems Problem Type SNOMED Code ICD Code Onset Dates Problem Status W/U Status Risk Notes Problem Generalized anxiety disorder (30300006) Generalized anxiety disorder (F41.1) Active confirmed Problem Posttraumatic stress disorder (07142556) Post-traumatic stress disorder, chronic (F43.12) Active confirmed Vital Signs Heart Rate 128 /min 12/06/2024 Height-cm 177.80 cm 12/06/2024 Blood pressure diastolic 74 mm Hg 12/06/2024 Weight-kg 95.25 kg 12/06/2024 Height 70.00 in 12/06/2024 Blood pressure systolic 112 mm Hg 12/06/2024 Weight 210 lbs 12/06/2024 BMI 30.13 kg/m2 12/06/2024 Encounters Encounter Location Date Provider Diagnosis [facility] [employer] [address] [address] 12/06/2024 Jazlyn Kurilla Generalized anxiety disorder F41.1 and Post-traumatic stress disorder, chronic F43.12 [facility] [employer] [place] [address] [address] 11/13/2024 Jazlyn Kurilla Generalized anxiety disorder F41.1 [facility] [employer] [address] [address] 12/06/2024 Jazlyn Kurilla Generalized anxiety disorder F41.1 Assessments Encounter Date Diagnosis (ICD Code) Assessment Notes Treatment Notes Treatment Clinical Notes Section Notes 11/13/2024 Generalized anxiety disorder (ICD-10 - F41.1) 12/06/2024 Generalized anxiety disorder (ICD-10 - F41.1) 12/06/2024 Generalized anxiety disorder (ICD-10 - F41.1) 12/06/2024 Post-traumatic stress disorder, chronic (ICD-10 - F43.12) 12/06/2024 Other Continue current medications. Refills sent [...] Insured Coverage Start Date Coverage End Date [facility] [address] [place] [phone] [id number] EMIR BYERS Self - patient is the insured Medical (General) History Medical History History ICD Code Problems: Chronic post-traumatic stress disorder Generalized anxiety disorder Long-term current use of drug therapy , Surgical History Surgery Date(Month/Year) Other 05/31/2015
--- OUTSIDE RECORDS SUMMARY | 2025-07-13 00:37 | XMS_ITS | Clinical Summary ---
Author Organization [facility] Address [address] [place] [address] Care Team Providers Care Colored Liquid Plastic Applier Name Role Phone Mac Chester MD Primary Care Provider [phone] Allergies No known active allergies Medications naloxone (NARCAN) 4 mg/actuation spray,non-aero darci Administer 1 spray into affected nostril(s) as needed for opioid reversal Call 911. Administer a single spray in one nostril. Repeat every 3 minutes as needed if no or minimal response. 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 Gender Identity Not on file Sexual Orientation [...] 11:42 AM CDT Height 177.8 cm (5' 10) 08/08/2024 11:42 AM CDT Body Mass Index 28.7 08/08/2024 11:42 AM CDT Plan of Treatment Health Maintenance Due Date Last Done Comments Depression Screening 1983 Hepatitis C Screening 1983 DTaP/Tdap/Td Vaccine (1 - Tdap) 1994 Varicella Vaccines (1 of 2 - 13+ 2-dose series) 1996 Hepatitis B Screening 2001 Regular Well Visit/Exam 18-64 2001 HPV Vaccines (1 - 3-dose SCD M series) 2010 Influenza Vaccine (#1) 2025 Pneumococcal vaccine <65 Aged Out No longer eligible based on patient's age to complete this topic Insurance IDPA Care Teams Colored Liquid Plastic Applier Relationship Specialty Start Date End Date Mac Chester MD [address] [place] [address] PCP - General Internal Medicine 11/13/23
--- NOTE | 2025-07-13 14:14 | WPDANESEPPF ---
Anes - Initial Pre Proc Eval Procedure: Operation Date: 07/13/25 14:45 Proposed Procedures p Esophagogastroduodenoscopy - Melecio Roberto MD Date/Time: 07/13/25 14:14 Surgeon: Melecio Roberto MD Pre Op Diagnosis: Dysphagia, unspecified, GERD Patient Data Age: 40 Gender: M Height: 1.78 m Weight: 100.7 kg Allergies Allergy/AdvReac Type Severity Reaction Status Date / Time No Known Allergies Allergy Verified 07/13/25 14:13 Home Medications ?Medication ?Instructions ?Recorded ?Confirmed ?Type buprenorphine 100 mg/0.5 mL 100 mg subcut MONTHLY 04/05/25 07/13/25 History solution,exten.rel.subcutaneous syringe (Sublocade) gabapentin 100 mg capsule 100 mg PO DAILY 04/05/25 07/13/25 History hydroxyzine HCl 25 mg tablet 25 mg PO DAILY 04/05/25 07/13/25 History vilazodone 40 mg tablet 40 mg PO DAILY 04/05/25 07/13/25 History hydrochlorothiazide 12.5 mg capsule 12.5 mg PO DAILY PRN swelling #30 04/18/25 07/10/25 Rx caps trazodone 50 mg tablet 50 mg PO QHS PRN sleep 04/18/25 07/10/25 History omeprazole 40 mg capsule,delayed 40 mg PO DAILY #90 caps 05/03/25 07/13/25 Rx release meloxicam 15 mg tablet 15 mg PO DAILY #30 tabs 07/10/25 07/13/25 Rx Patient hx anesthesia problems: none Family hx anesthesia problems: none Results Review: All pre-operative results and documents have been reviewed as part of the pre-operative evaluation. [facility] Past Medical History Medical History (Updated 07/13/25 @ 14:14 by Epifanio Luis MD) Overweight Acid reflux Anxiety Surgical History Surgical History History of hernia surgery Family History Family History Father Hypertension Mother Family history of seizure disorder Other Asthma Social History Social History Smoking packs per day: 0.5 Smoking cigarettes per day: 10.0 Years smoked: 10 Smoking pack-years: 5.00 Smoking status: Former smoker Tobacco type: cigarettes Second hand tobacco smoke exposure: Yes Smoking end date: 11/22/07 Alcohol intake: former Substance use: never Anes - Eval Final PreProcedure Day of Procedure 07/13/25 14:14 Patient weight: overweight Heart: regular rate and rhythm Lungs: clear to auscultation Airway: Mallampati scale class II Neurological: alert and oriented Last oral intake: 2 hours (water) Emergent: no Anesthetic plan: proceed Anesthesia type and monitoring: general GIVS and standard monitoring Results Review: All pre-operative results and documents have been reviewed as part of the pre-operative evaluation. Informed Consent: The patient's anesthetic plan and its attendant risks and benefits were discussed with the patient/family/POA. Questions were solicited and answers provided to the satisfaction of the patient/family/POA.
[2025-07-13 14:15] VITALS: BP 104/61; PULSE 47; RESP 18; TEMP 36.1; O2SAT 99; BMI 32.0
[2025-07-13] MEDS: LACTATED RINGERS 1,000 ML 150 ML IV CONT (14:22)
--- NOTE | 2025-07-13 14:38 | PM.HPGS ---
History of Present Illness History of Present Illness Consent: Risks, benefits, and alternatives have been discussed and questions answered. Patient agrees to proceed with procedure. Chief complaint: Dysphagia, unspecified, GERD Narrative: Andrew Hammond is a 40 year old male with gerd on ppi and dysphagia to solids, here for egd Review of Systems Review of Systems: All systems reviewed & are unremarkable except as noted in HPI and below PMFSH Past Medical History Medical History (Updated 07/13/25 @ 14:39 by Melecio Roberto MD) Acid reflux Dysphagia Overweight Anxiety Surgical History Surgical History History of hernia surgery Family History Family History Father Hypertension Mother Family history of seizure disorder Other Asthma Social History Social History Smoking packs per day: 0.5 Smoking cigarettes per day: 10.0 Years smoked: 10 Smoking pack-years: 5.00 Smoking status: Former smoker Tobacco type: cigarettes Second hand tobacco smoke exposure: Yes Smoking end date: 11/22/07 Alcohol intake: former Substance use: never Meds Home Medications and Allergies Home Medications ?Medication ?Instructions ?Recorded ?Confirmed ?Type buprenorphine 100 mg/0.5 mL 100 mg subcut MONTHLY 04/05/25 07/13/25 History solution,exten.rel.subcutaneous syringe (Sublocade) gabapentin 100 mg capsule 100 mg PO DAILY 04/05/25 07/13/25 History hydroxyzine HCl 25 mg tablet 25 mg PO DAILY 04/05/25 07/13/25 History vilazodone 40 mg tablet 40 mg PO DAILY 04/05/25 07/13/25 History hydrochlorothiazide 12.5 mg capsule 12.5 mg PO DAILY PRN swelling #30 04/18/25 07/10/25 Rx caps trazodone 50 mg tablet 50 mg PO QHS PRN sleep 04/18/25 07/10/25 History omeprazole 40 mg capsule,delayed 40 mg PO DAILY #90 caps 05/03/25 07/13/25 Rx release meloxicam 15 mg tablet 15 mg PO DAILY #30 tabs 07/10/25 07/13/25 Rx Allergies Allergy/AdvReac Type Severity Reaction Status Date / Time No Known Allergies Allergy Verified 07/13/25 14:13 Vital Signs Vital Signs - 24 hr 07/13/25 14:15 Temperature 97 F L Pulse Rate 47 L Respiratory Rate 18 Blood Pressure 104/61 Pulse Oximetry 99 Oxygen Delivery Room Air Exam Const: General: comfortable and no acute distress HENMT: Face/Nose/Sinus: Normal nares present Eyes: General: appearance normal, both eyes and all related structures Neck: Neck: no JVD Resp: Auscultation: clear to auscultation bilaterally Cardio: Rate: regular rate Rhythm: regular rhythm GI: Inspection: non-distended GI Palp: Yes Soft to palpation Skin: General skin exam: normal color Neuro: Speech: normal speech Extrem: General: normal to inspection Psych: Mental Status: mental status grossly normal Assessment and Plan Assessment and plan (1) Acid reflux: Code(s): K21.9 - Gastro-esophageal reflux disease without esophagitis Status: Acute Assessment and Plan: egd with bx (2) Dysphagia: Code(s): R13.10 - Dysphagia, unspecified Status: Acute
[2025-07-13 14:46] VITALS: BP 85/52; PULSE 80; RESP 20; O2SAT 98
--- NOTE | 2025-07-13 14:46 | S_PTH ---
PATIENT: Andrew Hammond LOC: [facility]#:[id number] AGE/SX: 40/M ROOM: RE07/13/[address]: Melecio Roberto MD : 1985 BED: DIS: 07/13/2025 SPEC #: [id number] RECD: 07/16/25 07:53 STATUS: KIANNA REQ #: [id number] NALDO: 07/13/25 14:[address]: Melecio Roberto DEPT: [facility] Surgical RECD BY: Karli Olguin ENTERED: 07/16/25 07:53 SP TYPE: Surgical OTHR DR: Clau Tan APRN Tissues: A - Esophageal Biopsy B - Gastric Biopsy Procedures: Hematoxylin and Eosin Stain Gross and Microscopic Level 4
[2025-07-13 14:56] VITALS: BP 92/62; PULSE 86; RESP 20; O2SAT 98
[2025-07-13 15:06] VITALS: BP 108/60; PULSE 83; RESP 20; O2SAT 95
== END 2025-07-13 15:20 | disposition home or self-care (01) ==
PROVIDERS: PCP Nurse Practitioner Family; Referring Provider Nurse Practitioner Family; Visit Provider Internal Medicine Gastroenterology
PROC: 0DJ08ZZ Inspection of Upper Intestinal Tract, Via Natural or Artificial Opening Endoscopic (ICD-10-PCS; CPT 43239; principal; 2025-07-13 14:45)
DX: K21.9 Gastro-esophageal reflux disease without esophagitis (principal); K31.89 Other diseases of stomach and duodenum; F41.9 Anxiety disorder, unspecified; Z98.890 Other specified postprocedural states; Z87.891 Personal history of nicotine dependence
CPT/HCPCS: 43239; 88305; J2704; J7120